=== PATIENT | male | born 1995 | race Caucasian/White ===

== ENCOUNTER 2017-05-27 13:20 | Emergency (ER) | payer OTHER ==
[2017-05-27 13:32] VITALS: BP 140/79
[2017-05-27] MEDS ORDERED: HYDROmorphone 0.5 MG/0.5 ML Syringe IVPUSH ONE ×2 (14:09→15:36)
[2017-05-27] MEDS ORDERED: Ondansetron 4 MG/2 ML SDV IVPUSH ONE (14:09)
[2017-05-27] MEDS ORDERED: Sodium Chloride 0.9% 10 ML Syringe FLUSH PRN (14:09)
[2017-05-27] MEDS ORDERED: Sodium Chloride 0.9% 1,000 ML IV SCH (14:15)
--- NOTE | 2017-05-27 14:47 | EDM.PDOC ---
ED HPI GENERAL MEDICAL PROBLEM - General Chief Complaint: Abdominal Pain Stated Complaint: PAIN ON RIGHT SIDE Time Seen by Provider: 05/27/17 13:45 Source of Information: Reports: Patient, RN Notes Reviewed - History of Present Illness INITIAL COMMENTS - FREE TEXT/NARRATIVE: 21 year old male comes in with R upper abd pain that started this AM about 6 hrs ago. Pain continues R upper abd this afternoon, he was hungry so did eat just a couple of hrs ago. He has had some nausea, did have a loose stool this am about 6 hrs ago, no vomiting. No fever or chills. Pain does radiate somewhat to his back, does not radiate to groin. No voiding sx. He did eat out last evening. Right Abdomen Pain Score (Numeric/FACES): 8 - Related Data Allergies Allergy/AdvReac Type Severity Reaction Status Date / Time No Known Allergies Allergy Verified 05/27/17 13:28 Home Meds: Home Meds Losartan [Cozaar] 25 mg PO DAILY 02/01/15 [History] metFORMIN [Glucophage] 500 mg PO DAILY 02/01/15 [History] Ciprofloxacin HCl [Cipro] 500 mg PO BID #7 tablet 05/27/17 [Rx] Past Medical History Cardiovascular History: Reports: High Cholesterol Endocrine/Metabolic History: Reports: Diabetes, Type II - Past Surgical History GI Surgical History: Reports: Appendectomy Social & Family History - Tobacco Use Smoking Status *Q: Never Smoker - Recreational Drug Use Recreational Drug Use: No ED ROS GENERAL - Review of Systems Review Of Systems: See Below Constitutional: Denies: Fever, Chills, Diaphoresis HEENT: Reports: No Symptoms Respiratory: Reports: Pleuritic Chest Pain (mild). Denies: Shortness of Breath Cardiovascular: Denies: Chest Pain GI/Abdominal: Reports: Abdominal Pain (right upper abd), Diarrhea (loose stool time 1 6 hrs ago, no watery diarrhea) : Reports: No Symptoms Musculoskeletal: Reports: Back Pain (mild) Skin: Reports: No Symptoms. Denies: Rash Neurological: Reports: No Symptoms ED EXAM, GI/ABD - Physical Exam Exam: See Below General Appearance: Alert, Mild Distress Throat/Mouth: Normal Inspection, Normal Oropharynx Neck: Supple, Full Range of Motion Respiratory/Chest: No Respiratory Distress, Lungs Clear, Normal Breath Sounds Cardiovascular: Regular Rate, Rhythm GI/Abdominal Exam: Tender (RUQ, mild tenderness upper mid abd). No: Guarding, Rebound (lower and right abd nontender) Back Exam: CVA Tenderness (R). No: CVA Tenderness (L) Extremities: Normal Inspection, Normal Range of Motion Neurological: Alert, Oriented, No Motor/Sensory Deficits Skin Exam: Warm, Dry, Normal Color Course - Vital Signs Last Recorded V/S: Last Vital Signs Temp 96.8 F 05/27/17 13:29 Pulse 98 05/27/17 13:29 Resp 18 05/27/17 13:29 BP 140/79 05/27/17 13:29 Pulse Ox 97 05/27/17 13:29 - Orders/Labs/Meds Orders: Active Orders 24 hr Category Date Time Status Peripheral IV Care [RC] . DIRECTED Care 05/27/17 14:09 Active Sodium Chloride 0.9% [Normal Saline] 1,000 ml Med 05/27/17 14:15 Active IV ONETIME Sodium Chloride 0.9% [Saline Flush] Med 05/27/17 14:09 Active 10 ml FLUSH ASDIRECTED PRN Peripheral IV Insertion Adult [OM.PC] Stat Oth 05/27/17 14:09 Ordered Medication Orders Sodium Chloride (Normal Saline) 1,000 mls @ 999 mls/hr IV ONETIME CHRISTA Last Admin: 05/27/17 14:31 Dose: 999 mls/hr Sodium Chloride (Saline Flush) 10 ml FLUSH ASDIRECTED PRN PRN Reason: Keep Vein Open Last Admin: 05/27/17 14:34 Dose: 10 ml Labs: Laboratory Tests 05/27/17 05/27/17 05/27/17 Range/Units 14:58 14:58 14:58 WBC 8.23 (4.23-9.07) K/mm3 RBC 5.28 (4.63-6.08) M/mm3 Hgb 16.1 (13.7-17.5) gm/L Hct 44.8 (40.1-51.0) % MCV 84.8 (79.0-92.2) fl MCH 30.5 (25.7-32.2) pg MCHC 35.9 H (32.2-35.5) g/dl RDW Std Deviation 37.8 (35.1-43.9) fL Plt Count 222 (163-337) K/mm3 MPV 9.6 (9.4-12.3) fl Neut % (Auto) 74.2 H (34.0-67.9) % Lymph % (Auto) 13.7 L (21.8-53.1) % [place] % (Auto) 8.4 (5.3-12.2) % Eos % (Auto) 2.9 (0.8-7.0) Baso % (Auto) 0.6 (0.1-1.2) % Neut # (Auto) 6.10 H (1.78-5.38) K/mm3 Lymph # (Auto) 1.13 L (1.32-3.57) K/mm3 [place] # (Auto) 0.69 (0.30-0.82) K/mm3 Eos # (Auto) 0.24 (0.04-0.54) K/mm3 Baso # (Auto) 0.05 (0.01-0.08) K/mm3 Sodium 138 (136-145) mEq/L Potassium 3.9 (3.5-5.1) mEq/L Chloride 103 (98-107) mEq/L Carbon Dioxide 27 (21-32) mEq/L Anion Gap 11.9 (5-15) BUN 12 (7-18) mg/dL Creatinine 1.1 (0.7-1.3) mg/dL Est Cr Clr Drug Dosing 124.83 mL/min Estimated GFR (MDRD) > 60 (>60) mL/min BUN/Creatinine Ratio 10.9 L (14-18) Glucose 110 H (74-106) mg/dL Calcium 8.8 (8.5-10.1) mg/dL Total Bilirubin 0.7 (0.2-1.0) mg/dL GGT 60 (15-85) U/L AST 51 H (15-37) U/L ALT 108 H (16-63) U/L Alkaline Phosphatase 63 (46-116) U/L C-Reactive Protein 1.6 H* (<1.0) mg/dL Total Protein 7.1 (6.4-8.2) g/dl Albumin 3.8 (3.4-5.0) g/dl Globulin 3.3 gm/dL Albumin/Globulin Ratio 1.2 (1-2) Lipase 109 (73-393) U/L Meds: Medications Generic Name Dose Route Start Last Admin Trade Name Frebryan PRN Reason Stop Dose Admin Sodium Chloride 1,000 mls @ 999 mls/hr 05/27/17 14:15 05/27/17 14:31 Normal Saline IV 999 mls/hr ONETIME CHRISTA Administration Sodium Chloride 10 ml 05/27/17 14:09 05/27/17 14:34 Saline Flush FLUSH 10 ml ASDIRECTED PRN Administration Keep Vein Open Discontinued Medications Generic Name Dose Route Start Last Admin Trade Name Freq PRN Reason Stop Dose Admin Hydromorphone HCl 0.5 mg 05/27/17 14:09 05/27/17 14:33 Dilaudid IVPUSH 05/27/17 14:10 0.5 mg ONETIME ONE Administration Hydromorphone HCl 0.5 mg 05/27/17 15:36 05/27/17 15:53 Dilaudid IVPUSH 05/27/17 15:37 0.5 mg ONETIME ONE Administration Ondansetron HCl 4 mg 05/27/17 14:09 05/27/17 14:32 Zofran IVPUSH 05/27/17 14:10 4 mg ONETIME ONE Administration - Re-Assessments/Exams Free Text/Narrative Re-Assessment/Exam: 05/27/17 17:45 WBC was normal, CRP very mildly elevated at 1.6. We gave dilaudid 0.5 mg IV along with IV fluid and IV zofran, gave some relief, followed that up with another 0.5 mg about an hour later and that did give further relief of pain which continues R upper abd primarily. Have scheduled for US of GB which will get done tomorrow morning. He continues to be nontender RLQ. Will start him on cipro 500 mg bid. Follow up clinic recomended for US results. He will need to return to ED if symptoms worsening in any way. Departure - Departure Time of Disposition: 16:33 Disposition: Home, Self-Care 01 Condition: Fair Clinical Impression: Abdominal pain Qualifiers: Abdominal location: right upper quadrant Qualified Code(s): R10.11 - Right upper quadrant pain - Discharge Information Prescriptions: Ciprofloxacin HCl [Cipro] 500 mg PO BID #7 tablet Instructions: Abdominal Pain, Adult, [id number] Referrals: Mina Lacy MD [Primary Care Provider] - Forms: ED Department Discharge Additional Instructions: We are working to get you scheduled for ultrasound of your GB. Be sure to have nothing to eat or drink after midnight prior to getting the ultrasound. Clear liquids only until tomorrow recomended. Than careful bland diet as tolerated. Cipro antibiotic 500 mg twice daily for 3 days. Follow up with Dr Aguayo after ultrasound if possible for results of ultrasound, to help arrange for further treatment as needed. - My Orders Last 24 Hours: My Active Orders 05/27/17 14:09 Peripheral IV Care [RC] . DIRECTED Sodium Chloride 0.9% [Saline Flush] 10 ml FLUSH ASDIRECTED PRN Peripheral IV Insertion Adult [OM.PC] Stat 05/27/17 14:15 Sodium Chloride 0.9% [Normal Saline] 1,000 ml IV ONETIME - Assessment/Plan Last 24 Hours: My Active Orders 05/27/17 14:09 Peripheral IV Care [RC] . DIRECTED Sodium Chloride 0.9% [Saline Flush] 10 ml FLUSH ASDIRECTED PRN Peripheral IV Insertion Adult [OM.PC] Stat 05/27/17 14:15 Sodium Chloride 0.9% [Normal Saline] 1,000 ml IV ONETIME
== END 2017-05-27 17:00 | disposition home or self-care (01) ==
LOC: JD.ED 13:20
DX: R10.11 Right upper quadrant pain (principal); E11.9 Type 2 diabetes mellitus without complications; E78.00 Pure hypercholesterolemia, unspecified; Z90.49 Acquired absence of other specified parts of digestive tract; Z79.84 Long term (current) use of oral hypoglycemic drugs; Z79.899 Other long term (current) drug therapy
CPT/HCPCS: 36415; 80053; 82977; 83690; 85025; 86140; 96361; 96374; 96375; 96376; 99284; J1170; J2405; J7040; J7050